=== PATIENT | female | born 1970 | race Caucasian/White ===

== ENCOUNTER 2019-07-03 04:35 | Day surgery (SDC) | payer OTHER ==
[2019-07-03 06:17] VITALS: BMI 31.4
[2019-07-03] MEDS ORDERED: IBUPROFEN 400 MG TABLET (FP) PO PRN (07:18)
[2019-07-03] MEDS ORDERED: ACETAMINOPHEN 325 MG TABLET (FP) PO PRN (07:18)
--- NOTE | 2019-07-03 07:18 | HP ---
History & Physical Update - History History: No Change - Physical Physical: No Change - Assessment Assessment: No Change - Plan Plan: No Change (No change in HP)
[2019-07-03] MEDS ORDERED: LIDOCAINE HCL 2% JELLY (5 ML/TUBE) ONE (07:21)
[2019-07-03] MEDS ORDERED: LIDOCAINE HCL/PF 2% SDV 5ML VIAL ONE (07:21)
[2019-07-03] MEDS ORDERED: EPHEDRINE SULFATE/0.9% NACL/PF 50 MG/10 ML SYRINGE NR ONE (07:21)
[2019-07-03] MEDS ORDERED: DEXAMETHASONE SOD PHOSPHATE 4 MG/1 ML VIAL ONE (07:21)
[2019-07-03] MEDS ORDERED: MIDAZOLAM HCL 2 MG/2 ML SINGLE DOSE VIAL ONE (07:22)
[2019-07-03] MEDS ORDERED: PROPOFOL 20 ML ONE ×4 (07:22→08:26)
--- NOTE | 2019-07-03 07:26 | HP ---
Satellite [facility] - Chief Complaint Chief Complaint: Endo polyp History Source: Patient - Past Medical History Allergies/Adverse Reactions: Allergies Allergy/AdvReac Type Severity Reaction Status Date / Time Penicillins Allergy Severe Swelling Verified 07/03/19 06:08 ...LMP Comment: 2004 - Current Medications Current Medications: Home Medications Medication Instructions Recorded NK [No Known Home Medication] 07/03/19 Satellite Physical Exam - Physical Examination Vital Signs: Vital Signs Period Temp Pulse Resp BP Sys/Schulz Pulse Ox Last 24 Hr 98.0 F 82 16 138/98 97 General Appearance: Well Nourished, Well Developed Lung: Clear to auscultation Breasts: Soft, Non-Tender Abdomen: Soft, No tenderness Extremities: No edema Pelvic Exam: Within normal limits External Genitalia, Within normal limits Vagina, Within normal limits Cervix, Within normal limits [place], Other Uterus (enlarged) Neurological: Intact, Alert, Oriented Satellite Impression/Plan - Impression/Plan Impression: Endometrial polyp Operative Procedure: Hysteroscopic myomectomy. Suction DC Date to be Performed: 07/03/19
[2019-07-03] MEDS ORDERED: ONDANSETRON 4 MG/2 ML VIAL IVPUSH PRN (07:33)
[2019-07-03] MEDS ORDERED: LACTATED RINGERS SOLUTION 1,000 ML IV SCH (07:45)
[2019-07-03] MEDS ORDERED: KETOROLAC TROMETHAMINE 30 MG/1 ML VIAL ONE (08:22)
--- NOTE | 2019-07-03 10:11 | OP ---
Operative Note - Note: Operative Date: 07/03/19 Pre-Operative Diagnosis: Submucosal myoma. endomerial polyp Operation: Hyseroscopic myomectmy. Suction DC Findings: endometrial polyps and submucosal myomas seen Post-Operative Diagnosis: Same as Pre-op Anesthesia: General Estimated Blood Loss (mls): 20 Operative Report Dictated: Yes
[2019-07-03] MEDS ORDERED: ACETAMINOPHEN 325 MG TABLET (FP) ONE (10:13)
[2019-07-03] MEDS ORDERED: ACETAMINOPHEN 325 MG TABLET (FP) PO ONE (10:15)
[2019-07-03 10:21] VITALS: TEMP 97.8
[2019-07-03 10:44] VITALS: BP 107/70; PULSE 65
--- NOTE | 2019-07-03 11:15 | OP ---
DATE OF OPERATION: 07/03/2019 PREOPERATIVE DIAGNOSIS: Endometrial polyps and submucosal myoma. OPERATION: Hysteroscopic myomectomy, suction dilation and curettage. POSTOPERATIVE DIAGNOSIS: Endometrial polyps and submucosal myoma. SURGEON: Alicja Zhang MD ANESTHESIA: General. PROCEDURE: Patient was taken to the operating room, placed in dorsal lithotomy position, prepped and draped in the usual sterile fashion. Time-out was performed in accordance with hospital regulation. Speculum was placed in the vagina. Anterior lip of the cervix was grasped with a single-tooth tenaculum. Cervix was then dilated to accommodate the operative hysteroscope. Endometrial polyps were seen once hysteroscope was inserted and endometrial polyp. Cautery and cutting of the submucosal myoma and endometrial polyp was done. Possible septum in the uterus. All contents were then suctioned. Dilation and curettage was then suctioned. Hemostasis was achieved. Patient had tolerated procedure well. Estimated blood loss less 20 mL. All instruments were then removed. ALICJA ZHANG M.D. [id number]
--- NOTE | 2019-07-04 09:30 | PATH ---
Surgical Pathology Report Patient Name: ARON LICONA [facility]. Rec. #: [id number] /Age/Gender: 1970 (Age: 48) / F Account: [id number] Location: [facility] SURGICAL Taken: 07/03/2019 Received: 07/03/2019 Reported: 07/04/2019 Physicians: Alicja Zhang M.D. Specimen(s) Received A: MYOMA SUBMUCOSA AND ENDOMETRIAL POLYP B: ENDOMETRIAL POLYP Clinical History Abdominal pain Final Diagnosis A. UTERUS, HYSTEROSCOPIC MYOMECTOMY: BENIGN ENDOMETRIAL POLYP, AND PORTIONS OF MYOMETRIAL TISSUE. NO ENDOMETRIAL HYPERPLASIA OR CARCINOMA IDENTIFIED. B. ENDOMETRIUM, CURETTING: BENIGN ENDOMETRIAL POLYP, AND BENIGN SQUAMOUS EPITHELIUM. NO ENDOMETRIAL HYPERPLASIA OR CARCINOMA IDENTIFIED. Electronically Signed Garcia Perez M.D. Gross Description A. Received in formalin labeled "submucosal myoma, endometrial polyp," is a 1.0 x 0.7 x 0.2 cm aggregate of burris, firm to rubbery tissue fragments. The formalin is filtered and the specimen is entirely submitted in one cassette. B. Received in formalin labeled "submucosal myoma, endometrial polyp," is a 1.1 x 0.9 x 0.3 cm aggregate of burris-pink soft tissue fragment. The formalin is filtered and the specimen is entirely submitted in one cassette. /07/03/2019 saudi07/03/2019
== END 2019-07-03 10:44 | disposition home or self-care (01) ==
LOC: JASU-SURG 04:35
PROVIDERS: ATTEND Obstetrics & Gynecology
PROC: 0UJD8ZZ Inspection of Uterus and Cervix, Via Natural or Artificial Opening Endoscopic (ICD-10-PCS; 2019-07-03)
PROC: 0UB98ZZ Excision of Uterus, Via Natural or Artificial Opening Endoscopic (ICD-10-PCS; principal; 2019-07-03 07:30)
PROC: 0UDB7ZX Extraction of Endometrium, Via Natural or Artificial Opening, Diagnostic (ICD-10-PCS; 2019-07-03 07:30)
DX: N84.0 Polyp of corpus uteri (principal); D25.0 Submucous leiomyoma of uterus
CPT/HCPCS: 88305-TC; 94760